=== PATIENT | female | born 1960 | race Caucasian/White ===

== ENCOUNTER 2021-05-12 14:38 | Outpatient (CLI) | payer BC ==
[2021-05-13 12:46] LABS: SARS-CoV-2 PCR by NAA Not Detected (NotDetected)
== END 2021-05-12 14:39 | disposition home or self-care (01) ==
LOC: CSHLAB 14:38
PROVIDERS: ATTEND Internal Medicine Critical Care Medicine
DX: Z20.822 Contact with and (suspected) exposure to COVID-19 (principal)
CPT/HCPCS: U0003; U0005

== ENCOUNTER 2023-06-20 15:26 | Outpatient (CLI) | payer BC | END 2023-06-20 15:27 | disposition home or self-care (01) | LOC: CSHCP 15:26 | PROVIDERS: ATTEND Internal Medicine Critical Care Medicine | DX: J45.909 Unspecified asthma, uncomplicated (principal); J98.4 Other disorders of lung | CPT/HCPCS: 94010; 94726; 94729; 94760 ==